=== PATIENT | female | born 1965 | race Caucasian/White ===

== ENCOUNTER 2018-02-21 12:08 | Outpatient (CLI) | payer OTHER | END 2018-02-21 12:09 | disposition home or self-care (01) | LOC: BICMAMMO 12:08 | PROVIDERS: ATTEND Family Medicine | DX: Z12.31 Encounter for screening mammogram for malignant neoplasm of breast (principal) | CPT/HCPCS: 77063; 77067 ==

== ENCOUNTER 2021-02-09 06:07 | Inpatient (IN) | payer BC ==
[2021-02-09] MEDS ORDERED: Ondansetron PF 4 MG/2 ML Vial ONE (06:33)
[2021-02-09] MEDS ORDERED: diphenhydrAMINE 50 MG/ML VIAL ONE (06:48)
[2021-02-09] MEDS ORDERED: methylPREDNISolone Sod Succ/PF 125 MG/2 ML VIAL ONE (06:48)
[2021-02-09] MEDS ORDERED: Famotidine/PF 20 mg/2ml Vial ONE (06:48)
[2021-02-09 07:07] LABS: #Basophils 0.1 thou/uL (0.0-0.2); #Monocytes 0.3 thou/uL (0.11-0.59); #Neutrophils 2.8 thou/uL (1.40-6.50); %Basophils 1.7 % (0.0-1.0); %Eosinophils 0.1 % (0.0-10.0); %Lymphocytes 23.3 % (21.0-51.0); %Monocytes 7.4 % (0.0-10.0); %Neutrophils 67.5 % (42.0-75.0); Hemoglobin 14.7 g/dL (12.0-16.0); Mean Corpuscular HGB CONC 34.1 g/dL (32.0-36.0); Mean Corpuscular Hemoglobin 30.4 pg (27.0-31.0); Mean Corpuscular Volume 89.1 fL (78.0-98.0); Mean Platelet Volume 6.6 fL (7.4-10.4); Platelet Count 243 thou/uL (130-400); RBC Distribution Width 12.7 % (11.5-14.5); Red Blood Cell (RBC) Count 4.83 mill/uL (4.20-5.40); White Blood Cell (WBC) Count 4.1 thou/uL (4.8-10.8)
[2021-02-09 07:20] LABS: ALT (SGPT) 58 U/L (8-55); AST (SGOT) 93 U/L (5-34); Albumin 3.7 g/dL (3.5-5.0); Alkaline Phosphatase 95 U/L (40-110); Anion Gap 14 mmol/L (10-20); BUN (Urea Nitrogen) 9 mg/dL (9.8-20.1); Bilirubin, Total 0.5 mg/dL (0.2-1.2); Calc. Creatinine Clearance 0 mL/min (70-130); Calcium 8.5 mg/dL (7.8-10.44); Carbon Dioxide 24 mmol/L (22-29); Chloride 98 mmol/L (98-107); Globulin 3.5 g/dL (2.4-3.5); Glucose 126 mg/dL (70-105); Potassium 3.2 mmol/L (3.5-5.1); Protein, Total 7.2 g/dL (6.0-8.3); Sodium 133 mmol/L (136-145)
[2021-02-09] MEDS ORDERED: Pot Chloride/Pot Bicarb/Cit Ac 25 mEq Effervescent Tablet ONE (08:01)
[2021-02-09] MEDS ORDERED: Iopamidol-370 76% 500 ML 1 ML ONE (08:44)
[2021-02-09] MEDS ORDERED: Enoxaparin Sodium 40 MG/0.4 ML SYRINGE SC SCH (11:30)
[2021-02-09] MEDS ORDERED: Ondansetron PF 4 MG/2 ML Vial IVP PRN (12:45)
[2021-02-09] MEDS ORDERED: REMDESIVIR 200 MG in Sodium Chloride 0.9% 250 ML 210 ML IV SCH (13:15)
[2021-02-09] MEDS: Acetaminophen 325 MG TAB PO PRN ×2 (13:19→23:20)
[2021-02-09] MEDS: Benzonatate 100 MG CAP PO PRN ×2 (13:20→21:03)
[2021-02-09] MEDS ORDERED: Azithromycin 500 MG in Sodium Chloride 0.9% 250 ML 250 ML IVPB SCH (17:00)
[2021-02-09] MEDS: Lactated Ringer's 1,000 ML IV SCH (17:33)
[2021-02-09] MEDS ORDERED: cefTRIAXone\\ROCEPHIN 1 GM in Sodium Chloride 0.9% 100 ML IVPB SCH (18:00)
[2021-02-09] MEDS: Mometasone 100 MCG/Formoterol 5 MCG 120 PUFF INHALER INH SCH (20:40)
[2021-02-10] MEDS ORDERED: Ketorolac Tromethamine 30 MG/ML VIAL IVP SCH (00:45)
[2021-02-10] MEDS: Lactated Ringer's 1,000 ML IV SCH ×3 (03:27→21:19)
[2021-02-10 06:07] LABS: #Lymphocytes 1.1 thou/uL (1.20-3.40); #Monocytes 0.6 thou/uL (0.11-0.59); #Neutrophils 3.5 thou/uL (1.40-6.50); %Basophils 0.9 % (0.0-1.0); %Eosinophils 0.4 % (0.0-10.0); %Lymphocytes 19.9 % (21.0-51.0); %Monocytes 11.6 % (0.0-10.0); %Neutrophils 67.3 % (42.0-75.0); Hemoglobin 13.2 g/dL (12.0-16.0); Mean Corpuscular HGB CONC 33.1 g/dL (32.0-36.0); Mean Corpuscular Hemoglobin 29.9 pg (27.0-31.0); Mean Corpuscular Volume 90.3 fL (78.0-98.0); Mean Platelet Volume 6.7 fL (7.4-10.4); Platelet Count 268 thou/uL (130-400); RBC Distribution Width 12.5 % (11.5-14.5); White Blood Cell (WBC) Count 5.3 thou/uL (4.8-10.8)
[2021-02-10] MEDS: Mometasone 100 MCG/Formoterol 5 MCG 120 PUFF INHALER INH SCH ×2 (06:14→18:11)
[2021-02-10] MEDS: Benzonatate 100 MG CAP PO PRN (06:25)
[2021-02-10] MEDS ORDERED: predniSONE 20 MG TAB PO SCH (08:00)
[2021-02-10] MEDS: REMDESIVIR 100 MG in Sodium Chloride 0.9% 250 ML 230 ML IV SCH (08:11)
[2021-02-10] MEDS: Enoxaparin Sodium 40 MG/0.4 ML SYRINGE SC SCH (08:12)
[2021-02-10] MEDS: Thyroid 60 MG TAB PO SCH (08:12)
[2021-02-10] MEDS: Thyroid 30 MG TAB PO SCH (08:12)
[2021-02-10] MEDS: Dexamethasone 4 MG TAB PO SCH (08:13)
[2021-02-10] MEDS: Losartan 25 MG TAB PO SCH (08:13)
[2021-02-10 08:24] LABS: Albumin 3.2 g/dL (3.5-5.0)
[2021-02-10 08:25] LABS: Chloride 99 mmol/L (98-107); Potassium 3.3 mmol/L (3.5-5.1); Sodium 135 mmol/L (136-145)
[2021-02-10 08:26] LABS: Calcium 8.2 mg/dL (7.8-10.44); Glucose 120 mg/dL (70-105)
[2021-02-10 08:27] LABS: Globulin 3.2 g/dL (2.4-3.5); Protein, Total 6.4 g/dL (6.0-8.3)
[2021-02-10 08:28] LABS: Anion Gap 11 mmol/L (10-20); Bilirubin, Total 0.5 mg/dL (0.2-1.2); Carbon Dioxide 28 mmol/L (22-29)
[2021-02-10 08:29] LABS: Alkaline Phosphatase 79 U/L (40-110)
[2021-02-10 08:30] LABS: Calc. Creatinine Clearance 228 mL/min (70-130)
[2021-02-10 08:31] LABS: BUN (Urea Nitrogen) 10 mg/dL (9.8-20.1)
[2021-02-10 08:32] LABS: ALT (SGPT) 43 U/L (8-55); AST (SGOT) 64 U/L (5-34)
[2021-02-10] MEDS: Acetaminophen 325 MG TAB PO PRN ×2 (08:39→18:10)
[2021-02-10] MEDS ORDERED: Azithromycin 250 MG in Sodium Chloride 0.9% 250 ML 250 ML IVPB SCH ×2 (09:37→17:00)
[2021-02-10] MEDS ORDERED: Potassium Chloride 20 MEQ TAB PO SCH (09:45)
[2021-02-10 10:18] LABS: Magnesium 1.9 mg/dL (1.6-2.6)
[2021-02-10] MEDS ORDERED: Magnesium 2 GM/50 ML 2 GM in Premix Bag 1 BAG IVPB SCH (10:45)
[2021-02-10 12:35] LABS: Phosphorus 1.7 mg/dL (2.3-4.7)
[2021-02-10] MEDS ORDERED: Potassium Phosphate 30 MMOL in Sodium Chloride 0.9% 500 ML IVPB SCH (12:45)
[2021-02-10] MEDS: Benzonatate 100 MG CAP PO SCH ×2 (14:12→21:17)
[2021-02-10] MEDS: Azithromycin 250 MG in Sodium Chloride 0.9% 250 ML 250 ML IVPB SCH (21:16)
[2021-02-10] MEDS: cefTRIAXone\\ROCEPHIN 1 GM in Sodium Chloride 0.9% 100 ML IVPB SCH (21:17)
[2021-02-10] MEDS: guaiFENesin ER 600 MG TAB PO SCH (21:18)
[2021-02-11] MEDS: Mometasone 100 MCG/Formoterol 5 MCG 120 PUFF INHALER INH SCH ×2 (06:21→18:15)
[2021-02-11 06:57] LABS: #Basophils 0.1 thou/uL (0.0-0.2); #Eosinphils 0.1 thou/uL (0.0-0.7); #Lymphocytes 1.3 thou/uL (1.20-3.40); #Monocytes 0.6 thou/uL (0.11-0.59); #Neutrophils 7.2 thou/uL (1.40-6.50); %Basophils 0.7 % (0.0-1.0); %Eosinophils 0.7 % (0.0-10.0); %Monocytes 6.4 % (0.0-10.0); %Neutrophils 78.2 % (42.0-75.0); Mean Corpuscular HGB CONC 33.8 g/dL (32.0-36.0); Mean Corpuscular Hemoglobin 30.6 pg (27.0-31.0); Mean Corpuscular Volume 90.6 fL (78.0-98.0); Mean Platelet Volume 6.8 fL (7.4-10.4); Platelet Count 330 thou/uL (130-400); RBC Distribution Width 12.6 % (11.5-14.5); Red Blood Cell (RBC) Count 4.25 mill/uL (4.20-5.40); White Blood Cell (WBC) Count 9.2 thou/uL (4.8-10.8)
[2021-02-11 07:08] LABS: CRP (Inflammatory) 2.15 mg/dL (= or < 0.5)
[2021-02-11 07:13] LABS: ALT (SGPT) 38 U/L (8-55); AST (SGOT) 57 U/L (5-34); Alkaline Phosphatase 74 U/L (40-110); Anion Gap 11 mmol/L (10-20); BUN (Urea Nitrogen) 8 mg/dL (9.8-20.1); Bilirubin, Total 0.5 mg/dL (0.2-1.2); Calc. Creatinine Clearance 256 mL/min (70-130); Calcium 8.2 mg/dL (7.8-10.44); Carbon Dioxide 28 mmol/L (22-29); Chloride 103 mmol/L (98-107); Glucose 110 mg/dL (70-105); Potassium 3.7 mmol/L (3.5-5.1); Sodium 138 mmol/L (136-145)
[2021-02-11] MEDS ORDERED: Potassium Phosphate 30 MMOL in Sodium Chloride 0.9% 500 ML IVPB SCH (07:30)
[2021-02-11 07:34] LABS: Phosphorus 1.8 mg/dL (2.3-4.7)
[2021-02-11] MEDS: REMDESIVIR 100 MG in Sodium Chloride 0.9% 250 ML 230 ML IV SCH (08:15)
[2021-02-11] MEDS: Benzonatate 100 MG CAP PO SCH ×3 (08:16→20:29)
[2021-02-11] MEDS: Thyroid 60 MG TAB PO SCH (08:16)
[2021-02-11] MEDS: Dexamethasone 4 MG TAB PO SCH (08:16)
[2021-02-11] MEDS: Thyroid 30 MG TAB PO SCH (08:16)
[2021-02-11] MEDS: Enoxaparin Sodium 40 MG/0.4 ML SYRINGE SC SCH (08:16)
[2021-02-11] MEDS: Losartan 25 MG TAB PO SCH (08:17)
[2021-02-11] MEDS: guaiFENesin ER 600 MG TAB PO SCH ×2 (08:17→20:31)
[2021-02-11] MEDS ORDERED: PHOS-NAK 1 PKT PACK PO SCH (09:00)
[2021-02-11] MEDS: Lactated Ringer's 1,000 ML IV SCH ×2 (10:22→10:29)
[2021-02-11] MEDS: Acetaminophen 325 MG TAB PO PRN (10:42)
[2021-02-11] MEDS: Azithromycin 250 MG in Sodium Chloride 0.9% 250 ML 250 ML IVPB SCH (20:29)
[2021-02-11] MEDS: cefTRIAXone\\ROCEPHIN 1 GM in Sodium Chloride 0.9% 100 ML IVPB SCH (20:30)
[2021-02-12] MEDS: Lactated Ringer's 1,000 ML IV SCH ×2 (05:17→17:03)
[2021-02-12 05:59] LABS: #Lymphocytes 1.5 thou/uL (1.20-3.40); #Monocytes 0.6 thou/uL (0.11-0.59); #Neutrophils 6.5 thou/uL (1.40-6.50); %Basophils 0.3 % (0.0-1.0); %Eosinophils 0.4 % (0.0-10.0); %Lymphocytes 16.8 % (21.0-51.0); %Monocytes 6.7 % (0.0-10.0); %Neutrophils 75.7 % (42.0-75.0); Mean Corpuscular HGB CONC 33.1 g/dL (32.0-36.0); Mean Corpuscular Hemoglobin 30.1 pg (27.0-31.0); Mean Platelet Volume 6.8 fL (7.4-10.4); Platelet Count 347 thou/uL (130-400); RBC Distribution Width 12.6 % (11.5-14.5); Red Blood Cell (RBC) Count 4.32 mill/uL (4.20-5.40); White Blood Cell (WBC) Count 8.6 thou/uL (4.8-10.8)
[2021-02-12 06:11] LABS: Phosphorus 2.3 mg/dL (2.3-4.7)
[2021-02-12 06:13] LABS: ALT (SGPT) 37 U/L (8-55); AST (SGOT) 52 U/L (5-34); Albumin 2.9 g/dL (3.5-5.0); Alkaline Phosphatase 77 U/L (40-110); Anion Gap 15 mmol/L (10-20); BUN (Urea Nitrogen) 7 mg/dL (9.8-20.1); Bilirubin, Total 0.6 mg/dL (0.2-1.2); CRP (Inflammatory) 3.28 mg/dL (= or < 0.5); Calc. Creatinine Clearance 276 mL/min (70-130); Carbon Dioxide 24 mmol/L (22-29); Chloride 103 mmol/L (98-107); Globulin 3.1 g/dL (2.4-3.5); Glucose 105 mg/dL (70-105); Magnesium 1.9 mg/dL (1.6-2.6); Potassium 3.8 mmol/L (3.5-5.1); Sodium 138 mmol/L (136-145)
[2021-02-12] MEDS: Mometasone 100 MCG/Formoterol 5 MCG 120 PUFF INHALER INH SCH ×2 (06:23→17:36)
[2021-02-12] MEDS: Dexamethasone 4 MG TAB PO SCH (08:19)
[2021-02-12] MEDS: Losartan 25 MG TAB PO SCH (08:20)
[2021-02-12] MEDS: Benzonatate 100 MG CAP PO SCH ×3 (08:20→20:18)
[2021-02-12] MEDS: Thyroid 30 MG TAB PO SCH (08:20)
[2021-02-12] MEDS: Enoxaparin Sodium 40 MG/0.4 ML SYRINGE SC SCH (08:20)
[2021-02-12] MEDS: guaiFENesin ER 600 MG TAB PO SCH ×2 (08:20→20:18)
[2021-02-12] MEDS: Thyroid 60 MG TAB PO SCH (08:21)
[2021-02-12] MEDS: REMDESIVIR 100 MG in Sodium Chloride 0.9% 250 ML 230 ML IV SCH (08:21)
[2021-02-12] MEDS: Azithromycin 250 MG in Sodium Chloride 0.9% 250 ML 250 ML IVPB SCH (20:18)
[2021-02-12] MEDS: cefTRIAXone\\ROCEPHIN 1 GM in Sodium Chloride 0.9% 100 ML IVPB SCH (21:27)
[2021-02-13] MEDS: Lactated Ringer's 1,000 ML IV SCH ×3 (03:26→20:16)
[2021-02-13] MEDS: Mometasone 100 MCG/Formoterol 5 MCG 120 PUFF INHALER INH SCH ×2 (06:19→17:15)
[2021-02-13 06:26] LABS: #Eosinphils 0.1 thou/uL (0.0-0.7); #Lymphocytes 1.6 thou/uL (1.20-3.40); #Monocytes 0.8 thou/uL (0.11-0.59); #Neutrophils 7.7 thou/uL (1.40-6.50); %Basophils 0.1 % (0.0-1.0); %Eosinophils 0.6 % (0.0-10.0); %Monocytes 7.6 % (0.0-10.0); %Neutrophils 75.6 % (42.0-75.0); Hemoglobin 12.9 g/dL (12.0-16.0); Mean Corpuscular HGB CONC 32.6 g/dL (32.0-36.0); Mean Corpuscular Hemoglobin 29.9 pg (27.0-31.0); Mean Corpuscular Volume 91.6 fL (78.0-98.0); Mean Platelet Volume 6.6 fL (7.4-10.4); Platelet Count 447 thou/uL (130-400); RBC Distribution Width 12.5 % (11.5-14.5); Red Blood Cell (RBC) Count 4.31 mill/uL (4.20-5.40); White Blood Cell (WBC) Count 10.2 thou/uL (4.8-10.8)
[2021-02-13 06:38] LABS: CRP (Inflammatory) 5.25 mg/dL (= or < 0.5); Magnesium 1.8 mg/dL (1.6-2.6)
[2021-02-13 06:44] LABS: ALT (SGPT) 37 U/L (8-55); AST (SGOT) 43 U/L (5-34); Albumin 3.1 g/dL (3.5-5.0); Alkaline Phosphatase 81 U/L (40-110); Anion Gap 14 mmol/L (10-20); BUN (Urea Nitrogen) 6 mg/dL (9.8-20.1); Bilirubin, Total 0.7 mg/dL (0.2-1.2); Calc. Creatinine Clearance 261 mL/min (70-130); Calcium 8.1 mg/dL (7.8-10.44); Carbon Dioxide 27 mmol/L (22-29); Chloride 98 mmol/L (98-107); Globulin 3.1 g/dL (2.4-3.5); Glucose 105 mg/dL (70-105); Phosphorus 2.2 mg/dL (2.3-4.7); Potassium 3.5 mmol/L (3.5-5.1); Protein, Total 6.2 g/dL (6.0-8.3); Sodium 135 mmol/L (136-145)
[2021-02-13] MEDS ORDERED: PHOS-NAK 1 PKT PACK PO SCH (08:30)
[2021-02-13] MEDS: Dexamethasone 4 MG TAB PO SCH (08:55)
[2021-02-13] MEDS: Losartan 25 MG TAB PO SCH (08:55)
[2021-02-13] MEDS: Benzonatate 100 MG CAP PO SCH ×3 (08:55→20:15)
[2021-02-13] MEDS: Thyroid 60 MG TAB PO SCH (08:55)
[2021-02-13] MEDS: Thyroid 30 MG TAB PO SCH (08:55)
[2021-02-13] MEDS: Enoxaparin Sodium 40 MG/0.4 ML SYRINGE SC SCH (08:55)
[2021-02-13] MEDS: guaiFENesin ER 600 MG TAB PO SCH ×2 (08:55→20:15)
[2021-02-13] MEDS: REMDESIVIR 100 MG in Sodium Chloride 0.9% 250 ML 230 ML IV SCH (08:56)
[2021-02-13] MEDS: Acetaminophen 325 MG TAB PO PRN (09:10)
[2021-02-13] MEDS ORDERED: Magnesium Sulfate 2 GM in Sodium Chloride 0.9% 100 ML IVPB ONE (09:44)
[2021-02-13] MEDS ORDERED: Magnesium 2 GM/50 ML 2 GM in Premix Bag 1 BAG IVPB SCH (10:00)
[2021-02-13] MEDS: Azithromycin 250 MG in Sodium Chloride 0.9% 250 ML 250 ML IVPB SCH (20:15)
[2021-02-13] MEDS: cefTRIAXone\\ROCEPHIN 1 GM in Sodium Chloride 0.9% 100 ML IVPB SCH (21:42)
[2021-02-14] MEDS: Mometasone 100 MCG/Formoterol 5 MCG 120 PUFF INHALER INH SCH ×2 (06:28→18:35)
[2021-02-14 06:33] LABS: CRP (Inflammatory) 7.08 mg/dL (= or < 0.5)
[2021-02-14 06:36] LABS: ALT (SGPT) 32 U/L (8-55); AST (SGOT) 32 U/L (5-34); Albumin 3.1 g/dL (3.5-5.0); Alkaline Phosphatase 83 U/L (40-110); Anion Gap 14 mmol/L (10-20); BUN (Urea Nitrogen) 7 mg/dL (9.8-20.1); Bilirubin, Total 0.7 mg/dL (0.2-1.2); Calc. Creatinine Clearance 252 mL/min (70-130); Calcium 8.3 mg/dL (7.8-10.44); Carbon Dioxide 28 mmol/L (22-29); Chloride 98 mmol/L (98-107); Globulin 3.3 g/dL (2.4-3.5); Glucose 112 mg/dL (70-105); Phosphorus 2.3 mg/dL (2.3-4.7); Potassium 3.8 mmol/L (3.5-5.1); Protein, Total 6.4 g/dL (6.0-8.3); Sodium 136 mmol/L (136-145)
[2021-02-14 06:44] LABS: Band 3 % (5-11); Hemoglobin 13.1 g/dL (12.0-16.0); Lymphocytes 8 % (21-51); MDiff Complete? YES; Mean Corpuscular HGB CONC 34.2 g/dL (32.0-36.0); Mean Corpuscular Volume 90.7 fL (78.0-98.0); Mean Platelet Volume 6.5 fL (7.4-10.4); Metamyelocyte 1 % (0-0); Monocytes 3 % (0-10); Myelocyte 3 % (0-0); Neutrophil 82 % (42-75); Platelet Count 472 thou/uL (130-400); Platelet Morphology Comment Appears Increased; RBC Distribution Width 12.7 % (11.5-14.5); RBC Morphology Normal; Red Blood Cell (RBC) Count 4.23 mill/uL (4.20-5.40); White Blood Cell (WBC) Count 12.7 thou/uL (4.8-10.8)
[2021-02-14] MEDS: Thyroid 60 MG TAB PO SCH (08:56)
[2021-02-14] MEDS: Dexamethasone 4 MG TAB PO SCH (08:57)
[2021-02-14] MEDS: Losartan 25 MG TAB PO SCH (08:57)
[2021-02-14] MEDS: Benzonatate 100 MG CAP PO SCH ×3 (08:57→20:34)
[2021-02-14] MEDS: Thyroid 30 MG TAB PO SCH (08:57)
[2021-02-14] MEDS: guaiFENesin ER 600 MG TAB PO SCH ×2 (08:57→20:35)
[2021-02-14] MEDS: Lactated Ringer's 1,000 ML IV SCH ×2 (08:58→18:35)
[2021-02-14] MEDS: Enoxaparin Sodium 40 MG/0.4 ML SYRINGE SC SCH (08:58)
[2021-02-14] MEDS: Albuterol 200 PUFF (6.7GM INHALER) INH PRN (09:27)
[2021-02-15 05:59] LABS: Hemoglobin 13.2 g/dL (12.0-16.0); MDiff Complete? YES; Mean Corpuscular HGB CONC 33.5 g/dL (32.0-36.0); Mean Corpuscular Hemoglobin 30.4 pg (27.0-31.0); Mean Corpuscular Volume 90.7 fL (78.0-98.0); Mean Platelet Volume 6.5 fL (7.4-10.4); Platelet Count 458 thou/uL (130-400); RBC Distribution Width 12.5 % (11.5-14.5); Red Blood Cell (RBC) Count 4.34 mill/uL (4.20-5.40); White Blood Cell (WBC) Count 12.6 thou/uL (4.8-10.8)
[2021-02-15 06:00] LABS: Band 2 % (5-11); Lymphocytes 6 % (21-51); Metamyelocyte 1 % (0-0); Monocytes 2 % (0-10); Neutrophil 89 % (42-75); Platelet Morphology Comment Appears Increased
[2021-02-15 06:09] LABS: ALT (SGPT) 25 U/L (8-55); AST (SGOT) 19 U/L (5-34); Alkaline Phosphatase 80 U/L (40-110); Anion Gap 11 mmol/L (10-20); BUN (Urea Nitrogen) 9 mg/dL (9.8-20.1); Bilirubin, Total 0.9 mg/dL (0.2-1.2); CRP (Inflammatory) 7.71 mg/dL (= or < 0.5); Calc. Creatinine Clearance 256 mL/min (70-130); Calcium 8.4 mg/dL (7.8-10.44); Carbon Dioxide 30 mmol/L (22-29); Chloride 99 mmol/L (98-107); Globulin 3.2 g/dL (2.4-3.5); Glucose 105 mg/dL (70-105); Potassium 3.4 mmol/L (3.5-5.1); Protein, Total 6.2 g/dL (6.0-8.3); Sodium 137 mmol/L (136-145)
[2021-02-15] MEDS ORDERED: Potassium Chloride 20 MEQ TAB PO SCH (07:15)
[2021-02-15] MEDS: Mometasone 100 MCG/Formoterol 5 MCG 120 PUFF INHALER INH SCH ×2 (08:26→17:56)
[2021-02-15] MEDS: Benzonatate 100 MG CAP PO SCH ×3 (08:27→20:34)
[2021-02-15] MEDS: Thyroid 30 MG TAB PO SCH (08:27)
[2021-02-15] MEDS: Thyroid 60 MG TAB PO SCH (08:27)
[2021-02-15] MEDS: Losartan 25 MG TAB PO SCH (08:27)
[2021-02-15] MEDS: Enoxaparin Sodium 40 MG/0.4 ML SYRINGE SC SCH (08:28)
[2021-02-15] MEDS: Dexamethasone 4 MG TAB PO SCH (08:28)
[2021-02-15] MEDS: guaiFENesin ER 600 MG TAB PO SCH ×2 (08:28→20:33)
[2021-02-15] MEDS: Acetaminophen 325 MG TAB PO PRN (12:58)
[2021-02-15] MEDS ORDERED: BARICITINIB 2 MG TAB PO SCH (15:15)
[2021-02-15] MEDS ORDERED: hydrALAZINE 20 MG/ML VIAL SLOW IVP ONE (16:46)
[2021-02-15] MEDS ORDERED: hydrALAZINE 10 MG TAB PO SCH ×2 (16:49→17:11)
[2021-02-15] MEDS ORDERED: hydrALAZINE 10 MG TAB PO PRN ×2 (17:56→17:58)
[2021-02-16] MEDS: Mometasone 100 MCG/Formoterol 5 MCG 120 PUFF INHALER INH SCH ×2 (05:38→19:10)
[2021-02-16 05:42] VITALS: BMI 50.0
[2021-02-16 05:58] LABS: #Eosinphils 0.4 thou/uL (0.0-0.7); #Lymphocytes 1.5 thou/uL (1.20-3.40); #Monocytes 0.7 thou/uL (0.11-0.59); #Neutrophils 9.1 thou/uL (1.40-6.50); %Basophils 0.2 % (0.0-1.0); %Eosinophils 3.3 % (0.0-10.0); %Lymphocytes 12.6 % (21.0-51.0); %Monocytes 6.2 % (0.0-10.0); %Neutrophils 77.8 % (42.0-75.0); Hemoglobin 13.3 g/dL (12.0-16.0); Mean Corpuscular HGB CONC 33.8 g/dL (32.0-36.0); Mean Corpuscular Hemoglobin 30.8 pg (27.0-31.0); Mean Platelet Volume 6.5 fL (7.4-10.4); Platelet Count 471 thou/uL (130-400); RBC Distribution Width 12.8 % (11.5-14.5); Red Blood Cell (RBC) Count 4.32 mill/uL (4.20-5.40); White Blood Cell (WBC) Count 11.7 thou/uL (4.8-10.8)
[2021-02-16 06:22] LABS: ALT (SGPT) 21 U/L (8-55); AST (SGOT) 18 U/L (5-34); Alkaline Phosphatase 77 U/L (40-110); Anion Gap 13 mmol/L (10-20); BUN (Urea Nitrogen) 11 mg/dL (9.8-20.1); Bilirubin, Total 0.7 mg/dL (0.2-1.2); Calc. Creatinine Clearance 254 mL/min (70-130); Calcium 8.5 mg/dL (7.8-10.44); Carbon Dioxide 26 mmol/L (22-29); Chloride 101 mmol/L (98-107); Globulin 3.3 g/dL (2.4-3.5); Glucose 102 mg/dL (70-105); Potassium 3.7 mmol/L (3.5-5.1); Protein, Total 6.3 g/dL (6.0-8.3); Sodium 136 mmol/L (136-145)
[2021-02-16] MEDS: Dexamethasone 4 MG TAB PO SCH (09:59)
[2021-02-16] MEDS: guaiFENesin ER 600 MG TAB PO SCH ×2 (10:00→20:21)
[2021-02-16] MEDS: Benzonatate 100 MG CAP PO SCH ×3 (10:00→20:22)
[2021-02-16] MEDS: Losartan 25 MG TAB PO SCH (10:00)
[2021-02-16] MEDS: Enoxaparin Sodium 40 MG/0.4 ML SYRINGE SC SCH (10:01)
[2021-02-16] MEDS: Thyroid 60 MG TAB PO SCH (10:05)
[2021-02-16] MEDS: Thyroid 30 MG TAB PO SCH (10:07)
[2021-02-16] MEDS: BARICITINIB 2 MG TAB PO SCH (10:07)
[2021-02-17] MEDS: Mometasone 100 MCG/Formoterol 5 MCG 120 PUFF INHALER INH SCH ×2 (05:32→18:23)
[2021-02-17 06:26] LABS: #Eosinphils 0.3 thou/uL (0.0-0.7); #Lymphocytes 1.1 thou/uL (1.20-3.40); #Monocytes 0.7 thou/uL (0.11-0.59); #Neutrophils 8.5 thou/uL (1.40-6.50); %Basophils 0.2 % (0.0-1.0); %Eosinophils 2.9 % (0.0-10.0); %Lymphocytes 10.3 % (21.0-51.0); %Monocytes 6.6 % (0.0-10.0); Mean Corpuscular HGB CONC 33.2 g/dL (32.0-36.0); Mean Corpuscular Hemoglobin 30.3 pg (27.0-31.0); Mean Corpuscular Volume 91.4 fL (78.0-98.0); Mean Platelet Volume 6.2 fL (7.4-10.4); Platelet Count 461 thou/uL (130-400); White Blood Cell (WBC) Count 10.6 thou/uL (4.8-10.8)
[2021-02-17 06:58] LABS: ALT (SGPT) 20 U/L (8-55); AST (SGOT) 16 U/L (5-34); Albumin 2.9 g/dL (3.5-5.0); Alkaline Phosphatase 72 U/L (40-110); Anion Gap 12 mmol/L (10-20); BUN (Urea Nitrogen) 11 mg/dL (9.8-20.1); Bilirubin, Total 0.8 mg/dL (0.2-1.2); Calc. Creatinine Clearance 225 mL/min (70-130); Calcium 8.4 mg/dL (7.8-10.44); Carbon Dioxide 28 mmol/L (22-29); Chloride 101 mmol/L (98-107); Globulin 3.1 g/dL (2.4-3.5); Glucose 94 mg/dL (70-105); Magnesium 2.1 mg/dL (1.6-2.6); Potassium 3.7 mmol/L (3.5-5.1); Sodium 137 mmol/L (136-145)
[2021-02-17] MEDS ORDERED: Sterile Water 0 ML ONE (07:09)
[2021-02-17] MEDS: Thyroid 30 MG TAB PO SCH (09:33)
[2021-02-17] MEDS: Losartan 25 MG TAB PO SCH (09:33)
[2021-02-17] MEDS: Dexamethasone 4 MG TAB PO SCH (09:34)
[2021-02-17] MEDS: Thyroid 60 MG TAB PO SCH (09:35)
[2021-02-17] MEDS: Benzonatate 100 MG CAP PO SCH ×3 (09:35→19:50)
[2021-02-17] MEDS: guaiFENesin ER 600 MG TAB PO SCH ×2 (09:35→19:50)
[2021-02-17] MEDS: BARICITINIB 2 MG TAB PO SCH (09:35)
[2021-02-17] MEDS: Enoxaparin Sodium 40 MG/0.4 ML SYRINGE SC SCH (09:48)
[2021-02-18] MEDS: Mometasone 100 MCG/Formoterol 5 MCG 120 PUFF INHALER INH SCH ×2 (06:21→18:52)
[2021-02-18 08:53] LABS: ALT (SGPT) 18 U/L (8-55); AST (SGOT) 18 U/L (5-34); Albumin 3.1 g/dL (3.5-5.0); Alkaline Phosphatase 74 U/L (40-110); Bilirubin, Direct 0.3 mg/dL (0.1-0.3); Bilirubin, Total 0.6 mg/dL (0.2-1.2); Protein, Total 6.2 g/dL (6.0-8.3)
[2021-02-18] MEDS: Benzonatate 100 MG CAP PO SCH ×3 (10:00→20:36)
[2021-02-18] MEDS: Losartan 25 MG TAB PO SCH (10:00)
[2021-02-18] MEDS: guaiFENesin ER 600 MG TAB PO SCH ×2 (10:01→20:36)
[2021-02-18] MEDS: Dexamethasone 4 MG TAB PO SCH (10:01)
[2021-02-18] MEDS: Enoxaparin Sodium 40 MG/0.4 ML SYRINGE SC SCH (10:02)
[2021-02-18] MEDS: BARICITINIB 2 MG TAB PO SCH (10:02)
[2021-02-18] MEDS: Thyroid 60 MG TAB PO SCH (18:51)
[2021-02-18] MEDS: Thyroid 30 MG TAB PO SCH (18:52)
[2021-02-18] MEDS: Enoxaparin Sodium 30 MG/0.3 ML SYRINGE SC SCH (20:36)
[2021-02-19] MEDS: Mometasone 100 MCG/Formoterol 5 MCG 120 PUFF INHALER INH SCH ×2 (06:15→17:51)
[2021-02-19 07:26] LABS: Anion Gap 11 mmol/L (10-20); BUN (Urea Nitrogen) 14 mg/dL (9.8-20.1); Calc. Creatinine Clearance 212 mL/min (70-130); Calcium 8.9 mg/dL (7.8-10.44); Carbon Dioxide 29 mmol/L (22-29); Chloride 101 mmol/L (98-107); Glucose 116 mg/dL (70-105); Sodium 137 mmol/L (136-145)
[2021-02-19] MEDS: Dexamethasone 4 MG TAB PO SCH (08:40)
[2021-02-19] MEDS: Enoxaparin Sodium 30 MG/0.3 ML SYRINGE SC SCH ×2 (08:40→20:08)
[2021-02-19] MEDS: BARICITINIB 2 MG TAB PO SCH (08:40)
[2021-02-19] MEDS: Benzonatate 100 MG CAP PO SCH ×3 (08:40→20:08)
[2021-02-19] MEDS: Thyroid 60 MG TAB PO SCH (08:41)
[2021-02-19] MEDS: guaiFENesin ER 600 MG TAB PO SCH ×2 (08:41→20:08)
[2021-02-19] MEDS: Thyroid 30 MG TAB PO SCH (08:41)
[2021-02-19] MEDS: Losartan 25 MG TAB PO SCH (08:41)
[2021-02-19] MEDS ORDERED: Losartan 25 MG TAB PO SCH (09:00)
[2021-02-19] MEDS: Albuterol 200 PUFF (6.7GM INHALER) INH PRN (17:51)
[2021-02-20] MEDS: Mometasone 100 MCG/Formoterol 5 MCG 120 PUFF INHALER INH SCH (05:18)
[2021-02-20 07:58] VITALS: BP 160/96; TEMP 98.3
[2021-02-20] MEDS: Thyroid 60 MG TAB PO SCH (10:06)
[2021-02-20] MEDS: BARICITINIB 2 MG TAB PO SCH (10:06)
[2021-02-20] MEDS: Thyroid 30 MG TAB PO SCH (10:06)
[2021-02-20] MEDS: Enoxaparin Sodium 30 MG/0.3 ML SYRINGE SC SCH (10:07)
[2021-02-20] MEDS: Benzonatate 100 MG CAP PO SCH (10:07)
[2021-02-20] MEDS: guaiFENesin ER 600 MG TAB PO SCH (10:07)
[2021-02-20] MEDS: Losartan 25 MG TAB PO SCH (10:08)
== END 2021-02-20 14:22 | disposition home or self-care (01) | DRG 177 ==
LOC: ERS 06:07 → T4-B 10:42
PROVIDERS: ADMIT Family Medicine; ATTEND Family Medicine
PROC: 8E0ZXY6 Isolation (ICD-10-PCS; principal; 2021-02-09)
PROC: XW033E5 Introduction of Remdesivir Anti-infective into Peripheral Vein, Percutaneous Approach, New Technology Group 5 (ICD-10-PCS; 2021-02-09)
DX: U07.1 COVID-19 (principal); J12.82 Pneumonia due to coronavirus disease 2019; J96.01 Acute respiratory failure with hypoxia; E87.1 Hypo-osmolality and hyponatremia; I10 Essential (primary) hypertension; E03.9 Hypothyroidism, unspecified; E87.6 Hypokalemia; K76.0 Fatty (change of) liver, not elsewhere classified; M79.7 Fibromyalgia; D72.819 Decreased white blood cell count, unspecified; Z91.041 Radiographic dye allergy status; Z79.899 Other long term (current) drug therapy; Z90.49 Acquired absence of other specified parts of digestive tract; Z90.710 Acquired absence of both cervix and uterus; Z82.49 Family history of ischemic heart disease and other diseases of the circulatory system; Z79.890 Hormone replacement therapy; Z91.040 Latex allergy status; Z91.018 Allergy to other foods
CPT/HCPCS: 36415; 71045; 71275; 80048; 80053; 80076; 83605; 83735; 84100; 84145; 84443; 84484; 85025; 86140; 87040; 93005; 94664; 96374; 96375; J0456; J0696; J1200; J1650; J1885; J2405; J2930; J3475; J3490; J7030; J7050; J8540; Q9967; S0028

== ENCOUNTER 2025-01-25 20:30 | Inpatient (IN) | payer BC ==
[2025-01-25] MEDS ORDERED: Ketorolac Tromethamine 30 MG (1 mL) VIAL ONE (22:12)
[2025-01-25] MEDS ORDERED: Acetaminophen 500 MG TAB ONE (22:12)
[2025-01-25] MEDS ORDERED: Metoclopramide HCl 10 MG (2 mL) VIAL ONE (22:12)
[2025-01-25] MEDS ORDERED: diphenhydrAMINE 50 MG/ML VIAL ONE (22:12)
[2025-01-25 22:17] LABS: #Basophils 0.05 10x3/uL (0.0-0.2); #Eosinophils 0.24 10x3/uL (0.0-0.7); #Monocytes 0.53 10x3/uL (0.11-0.59); #Neutrophils 5.53 10x3/uL (1.40-6.50); %Basophils 0.6 % (0.0-1.0); %Eosinophils 2.8 % (0.0-10.0); %Lymphocytes 25.0 % (21.0-51.0); %Monocytes 6.2 % (0.0-10.0); %Neutrophils 65.0 % (42.0-75.0); Hematocrit 36.8 % (36.0-47.0); Hemoglobin 11.8 g/dL (12.0-16.0); Mean Corpuscular Hemoglobin 28.9 pg (27.0-31.0); Mean Corpuscular Volume 90.2 fL (78.0-98.0); Platelet Count 355 10x3/uL (130-400); Red Blood Cell (RBC) Count 4.08 mill/uL (4.20-5.40); White Blood Cell (WBC) Count 8.51 10x3/uL (4.8-10.8)
[2025-01-25 22:23] LABS: ALT (SGPT) 45 U/L (Less than 34); AST (SGOT) 38 U/L (11-34); Albumin 3.5 g/dL (3.1-4.5); Alkaline Phosphatase 109 U/L (40-110); Anion Gap 14 mmol/L (10-20); BUN (Urea Nitrogen) 11 mg/dL (9.8-20.1); Bilirubin, Total 0.3 mg/dL (0.3-1.2); Calc. Creatinine Clearance 0 mL/min (70-130); Calcium 8.9 mg/dL (7.8-10.44); Carbon Dioxide 25 mmol/L (22-29); Chloride 103 mmol/L (98-107); Globulin 3.8 g/dL (2.4-3.5); Glucose 115 mg/dL (70-105); Potassium 3.9 mmol/L (3.5-5.1); Sodium 138 mmol/L (136-145)
[2025-01-25 22:28] LABS: Troponin I 0.018 ng/mL (< 0.028)
[2025-01-26] MEDS ORDERED: hydrALAZINE 20 MG/ML VIAL ONE ×2 (00:15→01:28)
[2025-01-26] MEDS ORDERED: niCARdipine 25 MG/10 ML SDV ONE ×2 (02:11→05:29)
[2025-01-26 04:42] LABS: Troponin I Less than 0.010 ng/mL (< 0.028)
[2025-01-26] MEDS ORDERED: niCARdipine 40MG In NaCl 40 MG/200 ML BAG IVPB SCH (06:00)
[2025-01-26 06:12] LABS: Cardiac Risk 4.3 (Less than 4.5); Cholesterol 168.0 mg/dl (< 200 Desired); HDL Cholesterol 39.0 mg/dL (>60 Neg Risk); Iron 36 ug/dL (50-170); Iron Binding Capacity, Total 301.0 mcg/dL (265-497); Iron Binding Capacity, Total 303 mcg/dL (265-497); LDL Cholesterol, Calculated 104.0 mg/dL; Transferrin, Serum 241.0 mg/dL (180-382); Triglycerides 124.0 mg/dL (Less than 150)
[2025-01-26 06:42] VITALS: BMI 59.1
[2025-01-26 06:46] LABS: Troponin I Less than 0.010 ng/mL (< 0.028)
[2025-01-26 06:52] LABS: #Basophils 0.03 10x3/uL (0.0-0.2); #Eosinophils 0.20 10x3/uL (0.0-0.7); #Monocytes 0.47 10x3/uL (0.11-0.59); #Neutrophils 3.93 10x3/uL (1.40-6.50); %Basophils 0.5 % (0.0-1.0); %Eosinophils 3.0 % (0.0-10.0); %Lymphocytes 29.8 % (21.0-51.0); %Monocytes 7.1 % (0.0-10.0); %Neutrophils 59.4 % (42.0-75.0); Hematocrit 35.8 % (36.0-47.0); Hemoglobin 11.6 g/dL (12.0-16.0); Mean Corpuscular Hemoglobin 29.1 pg (27.0-31.0); Mean Corpuscular Volume 89.9 fL (78.0-98.0); Platelet Count 283 10x3/uL (130-400); Red Blood Cell (RBC) Count 3.98 mill/uL (4.20-5.40); White Blood Cell (WBC) Count 6.61 10x3/uL (4.8-10.8)
[2025-01-26 07:16] LABS: ALT (SGPT) 40 U/L (Less than 34); AST (SGOT) 33 U/L (11-34); Albumin 3.1 g/dL (3.1-4.5); Alkaline Phosphatase 93 U/L (40-110); Anion Gap 16 mmol/L (10-20); BUN (Urea Nitrogen) 12 mg/dL (9.8-20.1); Bilirubin, Total 0.3 mg/dL (0.3-1.2); Calc. Creatinine Clearance 280 mL/min (70-130); Calcium 8.4 mg/dL (7.8-10.44); Carbon Dioxide 20 mmol/L (22-29); Chloride 105 mmol/L (98-107); Globulin 3.5 g/dL (2.4-3.5); Glucose 117 mg/dL (70-105); Potassium 3.7 mmol/L (3.5-5.1); Sodium 137 mmol/L (136-145)
[2025-01-26] MEDS: Acetaminophen 325 MG TAB PO PRN (08:40)
[2025-01-26] MEDS: niCARdipine 25 MG in Sodium Chloride 0.9% 250 ML 250 ML IVPB SCH (08:41)
[2025-01-26] MEDS: Losartan 25 MG TAB PO SCH (08:43)
[2025-01-26] MEDS: Enoxaparin 40 MG (0.4 mL) SYRINGE SC SCH ×2 (08:43→20:57)
[2025-01-26] MEDS: Acetaminophen 325 MG TAB ONE (08:47)
[2025-01-26] MEDS: Pantoprazole 40 MG DR.TAB PO SCH (08:47)
[2025-01-26] MEDS ORDERED: Furosemide 20 MG TAB PO SCH (09:00)
[2025-01-26] MEDS: Chlorthalidone 25 MG TAB PO SCH (10:25)
[2025-01-26] MEDS: diphenhydrAMINE 25 MG CAP PO SCH (12:47)
[2025-01-26] MEDS: diphenhydrAMINE 50 MG/ML VIAL IVP SCH (17:42)
[2025-01-26] MEDS: Furosemide 40 MG (4 mL) VIAL SLOW IVP SCH (17:44)
[2025-01-26] MEDS: Ketorolac Tromethamine 30 MG (1 mL) VIAL IVP SCH (18:29)
[2025-01-26] MEDS: Prochlorperazine 10 MG/2 ML VIAL SLOW IVP SCH (18:31)
[2025-01-27] MEDS: Ketorolac Tromethamine 30 MG (1 mL) VIAL IVP SCH ×2 (03:40→15:49)
[2025-01-27 05:08] LABS: #Basophils 0.05 10x3/uL (0.0-0.2); #Eosinophils 0.20 10x3/uL (0.0-0.7); #Monocytes 0.53 10x3/uL (0.11-0.59); #Neutrophils 4.33 10x3/uL (1.40-6.50); %Basophils 0.7 % (0.0-1.0); %Eosinophils 2.8 % (0.0-10.0); %Lymphocytes 27.4 % (21.0-51.0); %Monocytes 7.5 % (0.0-10.0); %Neutrophils 61.5 % (42.0-75.0); Hematocrit 33.9 % (36.0-47.0); Hemoglobin 10.9 g/dL (12.0-16.0); Mean Corpuscular Hemoglobin 29.5 pg (27.0-31.0); Mean Corpuscular Volume 91.6 fL (78.0-98.0); Platelet Count 310 10x3/uL (130-400); Red Blood Cell (RBC) Count 3.70 mill/uL (4.20-5.40); White Blood Cell (WBC) Count 7.05 10x3/uL (4.8-10.8)
[2025-01-27 05:27] LABS: ALT (SGPT) 36 U/L (Less than 34); AST (SGOT) 31 U/L (11-34); Albumin 3.1 g/dL (3.1-4.5); Alkaline Phosphatase 90 U/L (40-110); Anion Gap 15 mmol/L (10-20); BUN (Urea Nitrogen) 9 mg/dL (9.8-20.1); Bilirubin, Total 0.5 mg/dL (0.3-1.2); Calc. Creatinine Clearance 275 mL/min (70-130); Calcium 8.5 mg/dL (7.8-10.44); Carbon Dioxide 24 mmol/L (22-29); Chloride 104 mmol/L (98-107); Globulin 3.6 g/dL (2.4-3.5); Glucose 120 mg/dL (70-105); Potassium 3.7 mmol/L (3.5-5.1); Sodium 139 mmol/L (136-145)
[2025-01-27] MEDS: Furosemide 20 MG TAB PO SCH (09:46)
[2025-01-27] MEDS: Prochlorperazine 10 MG/2 ML VIAL SLOW IVP SCH (14:02)
[2025-01-27] MEDS: diphenhydrAMINE 50 MG/ML VIAL IVP SCH (14:02)
[2025-01-28] MEDS: Ketorolac Tromethamine 30 MG (1 mL) VIAL IVP SCH (02:16)
[2025-01-28 12:12] VITALS: BP 166/85; TEMP 97.9
== END 2025-01-28 13:12 | disposition home or self-care (01) | DRG 305 ==
LOC: ERS 20:30 → CCU 01-26 04:42 → T4-A 01-26 16:57
PROVIDERS: ADMIT Family Medicine; ATTEND Family Medicine
DX: I16.1 Hypertensive emergency (principal); E03.9 Hypothyroidism, unspecified; K21.9 Gastro-esophageal reflux disease without esophagitis; R74.01 Elevation of levels of liver transaminase levels; D64.9 Anemia, unspecified; Z87.442 Personal history of urinary calculi; Z90.49 Acquired absence of other specified parts of digestive tract; Z90.710 Acquired absence of both cervix and uterus; Z91.041 Radiographic dye allergy status; Z91.040 Latex allergy status; Z79.899 Other long term (current) drug therapy; Z79.891 Long term (current) use of opiate analgesic
CPT/HCPCS: 36415; 70450; 71045; 80053; 80061; 82728; 83036; 83540; 83550; 83880; 84466; 84484; 85025; 87428; 93005; J0360; J0780; J1200; J1650; J1885; J1940; J2270; J2765; J7050